=== PATIENT | female | born 1960 | race Two or more races ===

== ENCOUNTER → 2017-04-25 | Outpatient (CLI) | payer BC ==
[~2017-04-25] MED LIST: MOBIC PO; PAXIL30 MG PO; REGLAN10 MG PO; ROBAXIN PO; [UNRECOGNIZED DRUG - REMARK]
[2017-04-25 15:06] LABS: ALBUMIN SERUM 4.2 g/dL (3.5-5.0); BILIRUBIN,TOTAL 0.6 mg/dL (0.2-2.0); BUN/CREATININE RATIO 21.25; CALCIUM SERUM 9.6 mg/dL (8.4-10.2); CREATININE SERUM 0.8 mg/dL (0.6-1.4); GLOM FILT RATE Estimated 83.7 mL/min (>60); PROTEIN TOTAL SERUM 7.5 g/dL (6.0-8.3)
== END | disposition home or self-care (01) ==
LOC: CAMB 13:00
PROVIDERS: Surgery
DX: Z01.812 Encounter for preprocedural laboratory examination (principal); K64.9 Unspecified hemorrhoids
CPT/HCPCS: 36415; 80053

== ENCOUNTER → 2017-05-02 | Day surgery (SDC) | payer BC ==
--- NOTE | ~2017-05-02 | OR ---
Unit #: [id number] #: [id number] Patient: IRAJ CUNHA [id number] [address] [place], [place] [address] [id number] O MR#: [id number] NAME: IRAJ CUNHA ROOM: Date of Procedure: 05/02/2017 Admission Date: 05/02/2017 Surgeon: Renzo White Jr., M.D. : 1960 Attending Physician: Renzo White Jr., M.D. Referring Physician: Renzo White Jr., M.D. Primary Care Physician: Antonio Booth OPERATIVE REPORT INDICATIONS FOR PROCEDURE The patient is a 56-year-old female, who has been having intermittent rectal pain and rectal bleeding felt to be from hemorrhoids. She does have some large internal hemorrhoids. It was felt she should have a hemorrhoidal stapling with mucosectomy. She is brought in this time for this procedure. Also, if her exam under anesthesia indicates that, external hemorrhoidectomy may be done. PREOPERATIVE DIAGNOSES Rectal pain with bleeding hemorrhoids. POSTOPERATIVE DIAGNOSES Large dilated internal hemorrhoids with no significant external hemorrhoids. ANESTHESIA General with endotracheal intubation and 0.5% Marcaine with epinephrine locally in the perianal area. PROCEDURES PERFORMED Hemorrhoidal stapling with exam under anesthesia. DESCRIPTION OF PROCEDURE The patient was positioned in supine position. After being anesthetized and intubated, she was placed in prone position with a terrance-knife position on the table, prepped and draped in routine fashion for hemorrhoidal stapling. Perianal block was performed with 0.25% Marcaine with epinephrine. An anal dilatation performed up to 4 fingerbreadths. The anal retractor was placed followed by the internal anal retractor and 0 Prolene pursestring was placed approximately 4 cm above the dentate line in routine fashion. Additional 0 Prolene stitch was placed in the 6 o'clock position for traction and the stapler was placed and the pursestring tied around the stapler snugly and the stapler closed, fired, and removed with an excellent core of tissue on the stem of the stapler. The staple line was checked. Several areas were bleeding and controlled with interrupted [id number] 3-0 Vicryl stick ties. After total hemostasis was noted, the staple line was checked and noted to be intact with no evidence of any further bleeding or problems. After observing the staple line for approximately 5 minutes, the packing was removed from the area. The anal canal packed with Gelfoam soaked with viscous Xylocaine. Externally, there were only minimal hemorrhoidal tags and therefore, these were not removed and felt to be of no major consequence. Estimated blood Unit #: [id number] #: [id number] Patient: CHARLIE CUNHANZA loss less than 20 mL. The patient received less than 1000 mL crystalloid solution during the procedure. Sponges and instrument counts were correct x3. No drains used. No complications. The patient was taken to the recovery room with stable vital signs in satisfactory condition. Dictated by... Renzo White Jr., M.D. JMB/thai TD: 05/02/2017 12:03 JOB #: [id number] CC: Antonio Jaimes M.D. OPERATIVE REPORT Page 1 of 1 X Renzo White MD X PROCEDURE OPERATIVE NOTE
== END | disposition home or self-care (01) ==
LOC: CSUR 06:42
DX: K64.8 Other hemorrhoids (principal); K64.4 Residual hemorrhoidal skin tags; K62.89 Other specified diseases of anus and rectum; K59.00 Constipation, unspecified; K21.9 Gastro-esophageal reflux disease without esophagitis; F41.9 Anxiety disorder, unspecified; E66.9 Obesity, unspecified; Z68.30 Body mass index [BMI] 30.0-30.9, adult; M54.5 Low back pain; Z79.899 Other long term (current) drug therapy; Z79.1 Long term (current) use of non-steroidal anti-inflammatories (NSAID); Z87.442 Personal history of urinary calculi; Z80.0 Family history of malignant neoplasm of digestive organs; Z83.3 Family history of diabetes mellitus; Z90.710 Acquired absence of both cervix and uterus; Z90.49 Acquired absence of other specified parts of digestive tract
CPT/HCPCS: 88304; J0330; J1100; J1885; J2250; J2405; J2710; J3010